=== PATIENT | female | born 2000 | race Caucasian/White ===

== ENCOUNTER 2020-02-12 08:00 | Inpatient (IN) ==
[2020-02-12] MEDS ORDERED: Famotidine 20 MG/2 ML VIAL IVP PRN (11:21)
[2020-02-12] MEDS ORDERED: Naloxone 0.4 MG/ML INJ IVP PRN (11:21)
[2020-02-12] MEDS ORDERED: Metoclopramide 10 MG/2 ML VIAL IVP PRN (11:21)
[2020-02-12] MEDS ORDERED: Ondansetron 4 MG/2 ML VIAL IVP PRN (11:21)
[2020-02-12 12:03] LABS: Basophils % 0.3 %; Eosinophils # 0.1 K/mcL (0.0-0.6); Hematocrit 33.7 % (35.3-44.9); Hemoglobin 10.8 g/dL (11.5-15.4); Immature Granulocytes % 0.3 % (0-4); Lymphocytes # 2.1 K/mcL (0.6-4.6); Mean Corpuscular Hemoglobin 28.3 pg (28.0-33.3); Mean Corpuscular Volume 88.5 fL (83.0-100.0); Mean Platelet Volume 11.4 fL (9.4-12.4); Monocytes # 0.6 K/mcL (0.0-1.3); Monocytes % 7.2 %; Neutrophils # 5.8 K/mcL (1.6-8.9); Platelet Count 264 K/mcL (140-400); Red Blood Count 3.81 M/mcL (3.82-4.97); Red Cell Distribution Width 12.3 % (11.5-14.5); Segmented Neutrophils % 67.2 %; White Blood Count 8.7 K/mcL (4.3-11.1)
[2020-02-12 12:11] LABS: Amphetamine Screen,Urine Negative ng/mL (Cutoff=1000); Barbiturate Screen,Urine Negative ng/mL (Cutoff=200); Benzodiazepines Screen,Urine Negative ng/mL (Cutoff=200); Cannabinoid Screen,Urine Negative ng/mL (Cutoff = 50); Cocaine Screen,Urine Negative ng/mL (Cutoff= 300); Opiate Screen,Urine Negative ng/mL (Cutoff=300); Phencyclidine Screen,Urine Negative ng/mL (Cutoff=25)
[2020-02-12] MEDS: Ringers Solution, Lactated 1,000 ML IVC SCH ×2 (12:15→20:02)
[2020-02-12] MEDS ORDERED: *HR* Phenylephrine 10 MG/ML VIAL ONE (13:13)
[2020-02-12] MEDS ORDERED: EPHEDrine 50 MG/ML VIAL ONE (13:13)
[2020-02-12] MEDS ORDERED: Bupivacaine/PF 0.75% in Dex 2 ML AMPUL INFILT ONE (13:18)
[2020-02-12] MEDS ORDERED: Terbutaline 1 MG/ML VIAL SQ ONE ×2 (13:24→13:27)
[2020-02-12] MEDS ORDERED: CeFAZolin 2,000 MG/50 ML BAG IVPB ONE (13:25)
[2020-02-12] MEDS ORDERED: Acetaminophen IV 1,000 MG/100 ML INFUS..BTL ONE (14:13)
[2020-02-12] MEDS ORDERED: miSOPROStoL 25 MCG TABLET PO SCH (17:00)
[2020-02-12] MEDS ORDERED: EPHEDrine 50 MG/ML VIAL IVP PRN (17:13)
[2020-02-12] MEDS ORDERED: Ropivacaine/PF 0.2% 20 ML VIAL EP ONE (17:13)
[2020-02-12] MEDS ORDERED: *HR* FentaNYL (PF) 100 MCG/2 ML VIAL EP ONE (17:13)
[2020-02-12] MEDS ORDERED: Epidural Premix (fent/bupiv) 110 ML EP SCH (17:15)
[2020-02-12] MEDS ORDERED: Oxytocin 20 units/ LR 1000 mL 20 UNIT/1,000 ML BAG IVC SCH (19:30)
[2020-02-12] MEDS ORDERED: *HR* FentaNYL (PF) 100 MCG/2 ML VIAL ONE (21:18)
[2020-02-12] MEDS ORDERED: Ropivacaine/PF 0.2% 20 ML VIAL ONE (21:18)
[2020-02-13] MEDS: Ringers Solution, Lactated 1,000 ML IVC SCH (04:24)
[2020-02-13] MEDS ORDERED: Lidocaine 1% 20 ML MDV ONE (10:33)
[2020-02-13] MEDS ORDERED: Oxytocin 20 units/ LR 1000 mL 20 UNIT/1,000 ML BAG IVC ONE (12:11)
[2020-02-13] MEDS ORDERED: Benzocaine/Menthol 56 GM AEROSOL SPRAY TP PRN (12:11)
[2020-02-13] MEDS ORDERED: Ibuprofen 600 MG TABLET PO PRN (12:11)
[2020-02-13] MEDS ORDERED: Acetaminophen 325 MG TABLET PO PRN (12:11)
[2020-02-13] MEDS ORDERED: Rho Immune Globulin 1,500 UNIT SYRINGE IM PRN (12:11)
[2020-02-13] MEDS ORDERED: Measles/Mumps/Rubella Vacc 0.5 ML VIAL SQ PRN (12:11)
[2020-02-13] MEDS ORDERED: Oxytocin 20 units/ LR 1000 mL 20 UNIT/1,000 ML BAG IVC SCH (12:11)
[2020-02-14 06:31] LABS: Basophils % 0.2 %; Eosinophils % 0.2 %; Hemoglobin 9.6 g/dL (11.5-15.4); Immature Granulocytes % 0.8 % (0-4); Lymphocytes # 3.3 K/mcL (0.6-4.6); Lymphocytes % 17.1 %; Mean Corpuscular Hemoglobin 28.4 pg (28.0-33.3); Mean Corpuscular Volume 88.8 fL (83.0-100.0); Mean Platelet Volume 11.4 fL (9.4-12.4); Monocytes # 1.4 K/mcL (0.0-1.3); Monocytes % 7.3 %; Neutrophils # 14.1 K/mcL (1.6-8.9); Platelet Count 229 K/mcL (140-400); Red Blood Count 3.38 M/mcL (3.82-4.97); Red Cell Distribution Width 12.5 % (11.5-14.5); Segmented Neutrophils % 74.4 %
[2020-02-14 07:51] VITALS: BP 126/92
[2020-02-14] MEDS ORDERED: Prenatal Vit/FA 1 EACH TABLET PO SCH (09:00)
[2020-02-14] MEDS ORDERED: FERROUS SULFATE 27 MG PO SCH (09:00)
== END 2020-02-14 14:59 | disposition home or self-care (01) | DRG 560 ==
LOC: 1NENULAB 11:01 → 1NENUOBS 02-13 12:09
PROVIDERS: ADMIT Obstetrics & Gynecology; ATTEND Obstetrics & Gynecology